=== PATIENT | female | born 2000 | race Caucasian/White ===

== ENCOUNTER 2020-02-17 09:53 | Emergency (ER) | payer BC, SELFPAY ==
--- NOTE | 2020-02-17 10:00 | ED.FEMALEGU ---
HPI - Female Genitourinary General Chief complaint: Urogenital-Female Stated complaint: burning with urination/lower back pain Time Seen by Provider: 02/17/20 10:05 Source: patient and RN notes reviewed Mode of arrival: ambulatory Limitations: no limitations History of Present Illness HPI Narrative: 19-year-old female presents with concern for possible urinary tract infection reports 4-day history of dysuria, urgency, frequency, bilateral low back pain, suprapubic pressure. Reports her menstrual. Recently finished. Reports she swam in a orta prior to symptoms. She denies fever, vomiting, nausea, malaise. Reports she took Azo for 2 days, however has not taken it for the past 2 days. MD elicited complaint: UTI Related Data Allergies Allergy/AdvReac Type Severity Reaction Status Date / Time No Known Allergies Allergy Verified 02/17/20 10:09 Review of Systems Review of Systems: Narrative: CONSTITUTIONAL: Denies malaise, chills, sweats, or fever. CARDIOVASCULAR: Denies chest pain, palpitations, or edema. RESPIRATORY: Denies cough or dyspnea. GASTROINTESTINAL: Denies abdominal pain, nausea, vomiting, diarrhea. Reports suprapubic pressure GENITOURINARY: Reports dysuria frequency, urgency, bilateral flank pain. Denies hematuria. SKIN: Denies rash or itching. MUSCULOSKELETAL: Denies myalgia. NEUROLOGIC: Denies headache. PSYCHIATRIC: Denies anxiety or depression. All systems reviewed & are unremarkable except as noted in HPI and below PMFSH Social History Social History Smoking status: Never smoker Second hand tobacco smoke exposure: No Alcohol intake: current Comments At time of signature, agree with nursing past medical, surgical, social and family history. There is no relevant family history pertinent to the presenting complaint Exam Narrative: Exam Narrative: GENERAL: Well-appearing, well-nourished, and in no acute distress. HEAD: Normocephalic. EYES: PERRLA, conjunctivae clear. NECK: Supple. No lymphadenopathy CHEST: Clear to auscultation. No respiratory distress. HEART: Regular rate and rhythm. No murmur heard. Normal peripheral pulses. ABDOMEN: Soft, nontender upon palpation, nondistended, normal active bowel sounds, no palpable or pulsatile masses, no guarding. Mild bilateral CVA tenderness SKIN: Warm, dry, no rash. NEURO: Alert and oriented x3. PSYCH: Normal mood and affect Course Course Emergency Course: Patient is aware of diagnosis, understands and agrees to treatment plan. Anticipatory guidance given. Patient agrees to follow-up as directed and is aware of reasons to seek care at the emergency department. Portions of this record may have been created with voice recognition software Vital Signs Vital signs: Reviewed. MDM - Female Genitourinary MDM Narrative Medical decision making narrative: Exam findings and UA show no acute concerns or changes; patient is non-toxic appearing and is in no distress. Patient is appropriate for outpatient treatment and follow-up. Differential Diagnosis Differential diagnosis: Likely urinary tract infection, cystitis and other (Pyelonephritis, nephrolithiasis, renal colic) Lab Data Attestation: I reviewed the patient's lab results. Critical Care Time Critical Care Time Critical Care Time: No Discharge Plan Discharge Clinical Impression: Symptoms of urinary tract infection Patient Disposition: Home, Self-Care Condition: Stable Instructions: Antibiotic Form, Urinary Tract Infection in Women (ED) Additional Instructions: We will send a urine culture off to the lab; if the culture identifies an organism that the prescribed antibiotic will not treat, you will receive a phone call from an urgent care staff member and an appropriate antibiotic will be prescribed. -Your symptoms should begin to improve within a day of starting antibiotics. But you should finish all the antibiotic pills you get. Otherwise your in
[2020-02-17 10:01] VITALS: BP 128/69; PULSE 71; RESP 14; TEMP 36.5; O2SAT 99
== END 2020-02-17 10:26 | disposition home or self-care (01) ==
PROVIDERS: Emergency Provider Nurse Practitioner; PCP Family Medicine
DX: R30.0 Dysuria (principal); R35.0 Frequency of micturition; R39.15 Urgency of urination; M54.5 Low back pain
CPT/HCPCS: 81003; 87077; 87086; 87088; 99213; G0463

== ENCOUNTER 2020-08-30 08:17 | Emergency (ER) | payer BC, OTHER, SELFPAY ==
[2020-08-30 08:23] VITALS: BP 128/55; PULSE 63; RESP 16; TEMP 36.4; O2SAT 98
--- NOTE | 2020-08-30 08:31 | ED.URI ---
HPI - URI/Sore Throat General Chief Complaint: Upper Respiratory Infection Stated Complaint: sore throat/nausea Time Seen by Provider: 08/30/20 08:31 Source: patient and RN notes reviewed Mode of arrival: ambulatory Limitations: no limitations History of Present Illness HPI Narrative: 20-year-old female who presents to [facility] with complaints of awakening at 3 AM with sore throat and nausea. Patient denies any fevers, no chills, no cough or any complaints of body aches. Patient states she has taken some NyQuil for her symptoms which did help some, she reports. Patient has had no vomiting or diarrhea, denies any abdominal pain, no loss of taste or smell or any shortness of breath. Patient states that her boyfriend did have a sore throat also but he is better, denies anyone in family as being ill. MD elicited complaint: sore throat Onset (ago): day(s) (1) Consistency: constant Severity: moderate Pain scale (0-10): 6 Description of mucous: clear Able to tolerate fluids by mouth: Yes Exacerbating factors: swallowing Relieving factors: other (cold medicine) Associated symptoms: rhinorrhea, sore throat and nausea Treatments prior to arrival: other (Nyquil) Related Data Home Medications Medication Instructions Recorded Confirmed No Home Medications 08/30/20 08/30/20 Allergies Allergy/AdvReac Type Severity Reaction Status Date / Time No Known Allergies Allergy Verified 08/30/20 08:30 Review of Systems Review of Systems: Narrative: CONSTITUTIONAL: Denies fever, chills, or sweats. EYES: Denies visual changes, redness, or discharge. ENT: positive rhinorrhea, congestion, sore throat, no otalgia. CARDIOVASCULAR: Denies chest pain, palpitations, or edema. RESPIRATORY: Denies cough or dyspnea. GASTROINTESTINAL: Denies abdominal pain,positive nausea, no vomiting, or diarrhea. GENITOURINARY: Denies dysuria or hematuria. SKIN: Denies rash or itching. MUSCULOSKELETAL: Denies back pain, joint pain, or myalgia. NEUROLOGIC: Denies headache, numbness, or weakness. PSYCHIATRIC: Positive history of anxiety or depression. All systems reviewed & are unremarkable except as noted in HPI and below PMFSH Past Medical History Medical History (Updated 08/30/20 @ 08:53 by Ebony Holland NP) Reactive depression Surgical History Surgical History (Updated 08/30/20 @ 09:25 by Ebony Holland NP) H/O hand surgery at age 3 right hand History of excision of pilonidal cyst Family History Family History Father Hypertension Mother Hypertension Grandparent Hypertension Acute myocardial infarction Family history of Alzheimer's disease Family history of malignant neoplasm of breast Family history of throat cancer Social History Social History (Updated 08/30/20 @ 08:52 by Ebony Holland NP) Smoking status: Never smoker Second hand tobacco smoke exposure: No Alcohol intake: current Substance use: never Gender identity (if verbalized by the patient): Female Comments At time of signature, agree with nursing past medical, surgical, social and family history. There is no relevant family history pertinent to the presenting complaint Exam Narrative: Exam Narrative: GENERAL: Well-appearing, well-nourished, and in no acute distress. HEAD: Normocephalic, atraumatic. EYES: PERRLA and EOMI. ENT: Nares red with clear rhinorrhea no epistaxis. Mucous membranes moist.TM's normal with good light reflex, throat red with no tonsil enlargement or exudates, post nasal drainage present in back of throat NECK: Supple.no lymphadenopathy CHEST: Clear to auscultation. No respiratory distress.SAO2 98% on room air. HEART: Regular rate and rhythm. No murmur heard. Normal peripheral pulses. ABDOMEN: Soft, nontender, nondistended, normal active bowel sounds, reports some nausea denies any vomiting or diarrhea. EXTREMITIES: Normal range of motion. No edema. SKIN: Warm, dry, no ra
== END 2020-08-30 09:00 | disposition home or self-care (01) ==
PROVIDERS: Emergency Provider Registered Nurse
DX: J06.9 Acute upper respiratory infection, unspecified (principal); J02.9 Acute pharyngitis, unspecified; Z20.822 Contact with and (suspected) exposure to COVID-19
CPT/HCPCS: 87081; 87804; 87880; 99213; G0463

== ENCOUNTER 2020-08-30 09:01 | Outpatient (NON) | payer BC, SELFPAY ==
[2020-08-30 19:42] LABS: SARS-CoV-2 RNA PCR Negative
== END 2020-08-30 09:02 ==
PROVIDERS: Visit Provider Registered Nurse
DX: J02.9 Acute pharyngitis, unspecified (principal); J06.9 Acute upper respiratory infection, unspecified; Z20.822 Contact with and (suspected) exposure to COVID-19
CPT/HCPCS: C9803; U0003

== ENCOUNTER 2020-10-11 09:33 | Emergency (ER) | payer OTHER, BC, SELFPAY ==
--- NOTE | 2020-10-11 09:35 | ED.FEMALEGU ---
HPI - Female Genitourinary General Chief complaint: Urogenital-Female Stated complaint: POS UTI Time Seen by Provider: 10/11/20 09:35 Source: patient and RN notes reviewed History of Present Illness HPI Narrative: Patient is a 20-year-old female who presents the urgent care with complaints of a possible UTI. Patient states that she does not have frequent UTIs however she has had them in the past after sexual intercourse. Patient is not currently on control but does state there is not a chance she could be . Patient states she is having suprapubic pressure, frequency, decreased urinary output, and dysuria. Patient denies of any fever, chills, nausea, vomiting, abdominal pain. Patient states that she has been taking Azo for her symptoms which started 2 days ago. Patient states that her last dose of Azo was last night. No other acute complaints. No acute distress noted. Patient aware of the plan of care. Some parts of this dictation were generated by voice recognition software and may contain typographical and/or grammatical inaccuracies. Related Data Allergies Allergy/AdvReac Type Severity Reaction Status Date / Time No Known Allergies Allergy Verified 08/30/20 08:30 Review of Systems Review of Systems: Narrative: CONSTITUTIONAL: Denies fever, chills, or sweats. EYES: Denies visual changes, redness, or discharge. ENT: Denies rhinorrhea, congestion, sore throat, or otalgia. CARDIOVASCULAR: Denies chest pain, palpitations, or edema. RESPIRATORY: Denies cough or dyspnea. GASTROINTESTINAL: Denies abdominal pain, nausea, vomiting, or diarrhea. GENITOURINARY: Reports of urinary frequency, decreased urinary output, dysuria, suprapubic pressure SKIN: Denies rash or itching. MUSCULOSKELETAL: Denies back pain, joint pain, or myalgia. NEUROLOGIC: Denies headache, numbness, or weakness. All other systems reviewed are negative, except as documented in HPI. [facility] Past Medical History Medical History (Updated 10/11/20 @ 09:49 by JENNIE Yip) Reactive depression Surgical History Surgical History (Updated 08/30/20 @ 09:25 by Ebony Holland NP) H/O hand surgery at age 3 right hand History of excision of pilonidal cyst Family History Family History Father Hypertension Mother Hypertension Grandparent Hypertension Acute myocardial infarction Family history of Alzheimer's disease Family history of malignant neoplasm of breast Family history of throat cancer Social History Social History (Updated 08/30/20 @ 08:52 by Ebony Holland NP) Smoking status: Never smoker Second hand tobacco smoke exposure: No Alcohol intake: current Substance use: never Gender identity (if verbalized by the patient): Female Comments At the time of my signature, I reviewed and agree with the nursing past medical, surgical, social, and family history. There is no relevant family history pertinent to the patient complaint. Exam Narrative: Exam Narrative: GENERAL: This is a well-nourished, well-developed patient, in no apparent distress. HEAD: normocephalic, atraumatic. EYES: PERRL. Sclera clear/white. Vision is grossly intact. EARS: External ears normal NOSE: External nose normal with no obvious nasal discharge, nares without redness, no rhinorrhea. THROAT: Mucous membranes moist NECK: Neck supple GASTROINTESTINAL: Abdomen soft, mild suprapubic tenderness, nondistended. SKIN: warm, intact with no suspicious lesions or rash, good texture and turgor. NEURO: awake, alert, and oriented to person, place and time. There were no obvious focal neurologic abnormalities. EXTREMITIES: No clubbing, cyanosis, or edema. BACK: Left-sided CVA tenderness Course Vital Signs Vital signs: Vital Signs Temperature 99.5 F 10/11/20 09:37 Pulse Rate 122 H 10/11/20 09:37 Respiratory Rate 16 10/11/20 09:37 Blood Pressure 134/93 H 10/11/20 09:37 P
[2020-10-11 09:37] VITALS: BP 134/93; PULSE 122; RESP 16; TEMP 37.5; O2SAT 99
== END 2020-10-11 09:56 | disposition home or self-care (01) ==
PROVIDERS: Emergency Provider Nurse Practitioner Family
DX: N39.0 Urinary tract infection, site not specified (principal)
CPT/HCPCS: 81003; 87086; 87088; 99213; G0463

== ENCOUNTER 2021-01-07 09:14 | Emergency (ER) | payer BC, SELFPAY ==
[2021-01-07 09:40] VITALS: BP 113/72; PULSE 72; RESP 16; TEMP 37; O2SAT 98
--- NOTE | 2021-01-07 10:18 | ED.FEMALEGU ---
HPI - Female Genitourinary General Chief complaint: Urogenital-Female Stated complaint: UTI Time Seen by Provider: 01/07/21 10:18 Source: patient Mode of arrival: ambulatory Limitations: no limitations History of Present Illness HPI Narrative: Shilpa Barclay is a 20 yo female who comes to [facility] with complaints of 2 days of burning dysuria and difficulty urinating she tried Azo but has still had a lot of difficulty with urinating Related Data Allergies Allergy/AdvReac Type Severity Reaction Status Date / Time No Known Allergies Allergy Verified 08/30/20 08:30 Review of Systems Review of Systems: Narrative: CONSTITUTIONAL: Denies fever, chills, sweats. EYES: Denies visual changes, redness, discharge. ENT: Denies rhinorrhea, congestion, sore throat, otalgia. CARDIOVASCULAR: Denies chest pain, palpitations, edema. RESPIRATORY: Denies dyspnea, wheezing, cough GASTROINTESTINAL: Denies abdominal pain, nausea, vomiting, diarrhea. GENITOURINARY: Has dysuria, hematuria, no abnormal discharge SKIN: Denies rash or itching. NEUROLOGIC: Denies numbness, or focal weakness. PSYCHIATRIC: Denies anxiety or depression. PMFSH Past Medical History Medical History Reactive depression Surgical History Surgical History H/O hand surgery at age 3 right hand History of excision of pilonidal cyst Family History Family History Father Hypertension Mother Hypertension Grandparent Hypertension Acute myocardial infarction Family history of Alzheimer's disease Family history of malignant neoplasm of breast Family history of throat cancer Other High cholesterol Social History Social History Smoking status: Never smoker Second hand tobacco smoke exposure: No Alcohol intake: current Substance use: never Gender identity (if verbalized by the patient): Female Comments At time of signature, I agree with nursing past medical, surgical, social and family history. There is no relevant family history pertinent to the presenting complaint. Exam Narrative: Exam Narrative: GENERAL: This is a well-nourished, well-developed patient, in mild distress. HEAD: normocephalic, atraumatic. EYES: Sclera clear/white. Vision is grossly intact. EARS: External ears normal. Hearing grossly intact. NOSE: External nose normal without nasal discharge, nares without redness, no rhinorrhea. THROAT: Mucous membranes moist, NECK: Neck supple, non-tender CARDIOVASCULAR: Regular rate and rhythm without murmurs, gallops, or rubs. RESPIRATORY: Clear to auscultation. Breath sounds equal bilaterally. No wheezes, rales, or rhonchi. GASTROINTESTINAL: Abdomen soft, non-tender, SKIN: warm, intact with no suspicious lesions or rash, good texture and turgor. NEURO: awake, alert, and oriented to person, place and time. There were no obvious focal neurologic abnormalities. Steady gait EXTREMITIES: Normal range of motion. BACK: Nontender without deformity Course Course Emergency Course: Patient comes to [facility] for treatment of dysuria and difficulty urinating x2 days Shows 2+ bili 1+ ketones positive nitrate 3+ leuks no blood Start on Keflex 500 mg 1 twice daily x5 days Instructed to hydrate well with water Vital Signs Vital signs: Vital Signs Temperature 98.6 F 01/07/21 09:40 Pulse Rate 72 01/07/21 09:40 Respiratory Rate 16 01/07/21 09:40 Blood Pressure 113/72 01/07/21 09:40 Pulse Oximetry 98 01/07/21 09:40 Temperature 98.6 F 01/07/21 09:40 Pulse Rate 72 01/07/21 09:40 Respiratory Rate 16 01/07/21 09:40 Blood Pressure 113/72 01/07/21 09:40 Pulse Oximetry 98 01/07/21 09:40 MDM - Female Genitourinary Differential Diagnosis Differential diagnosis: Likely urinary tract infection, cyst
== END 2021-01-07 10:36 | disposition home or self-care (01) ==
PROVIDERS: Emergency Provider Nurse Practitioner
DX: N30.00 Acute cystitis without hematuria (principal)
CPT/HCPCS: 81003; 87086; 99213; G0463

== ENCOUNTER 2021-03-13 15:56 | Emergency (ER) | payer BC, SELFPAY ==
[2021-03-13 16:08] VITALS: BP 129/73; PULSE 70; RESP 20; TEMP 36.8; O2SAT 99
--- NOTE | 2021-03-13 17:05 | ED.FEMALEGU ---
HPI - Female Genitourinary General Chief complaint: Urogenital-Female Stated complaint: poss uti Time Seen by Provider: 03/13/21 17:05 Source: patient and RN notes reviewed Mode of arrival: ambulatory Limitations: no limitations History of Present Illness HPI Narrative: 20 year old female who presents to express care with complaints of burning with urination and suprapubic pressure with urinary frequency since yesterday. Patient denies any known fevers, chills or sweats, denies any vaginal discharge or concern for STD exposure. Patient has taken AZO and Aleve for her symptoms. Patient states was treated for UTI in December also. MD elicited complaint: dysuria and UTI Pertinent past history: pyelonephritis Onset (ago): day(s) (day 2 of symptoms) Location of symptoms: suprapubic and urethra Severity: moderate Severity scale (1-10): 6 Quality of pain: burning and aching Consistency: progressively worsening Vaginal discharge: none Vaginal bleeding: none Urinary symptoms: Dysuria, Urgency and Frequency Relieving factors: urination Treatment prior to arrival: OTC urinary analgesics and NSAIDs Related Data Allergies Allergy/AdvReac Type Severity Reaction Status Date / Time No Known Allergies Allergy Verified 03/13/21 16:37 Review of Systems Review of Systems: Narrative: CONSTITUTIONAL: Denies fever, chills, or sweats. EYES: Denies visual changes, redness, or discharge. ENT: Denies rhinorrhea, congestion, sore throat, or otalgia. CARDIOVASCULAR: Denies chest pain, palpitations, or edema. RESPIRATORY: Denies cough or dyspnea. GASTROINTESTINAL:Positive suprapubic abdominal pain,no nausea, vomiting, or diarrhea. GENITOURINARY:Positive dysuria or hematuria. SKIN: Denies rash or itching. MUSCULOSKELETAL: Denies back pain, joint pain, or myalgia. NEUROLOGIC: Denies headache, numbness, or weakness. PSYCHIATRIC: Denies anxiety or depression. All systems reviewed & are unremarkable except as noted in HPI and below [facility] Past Medical History Medical History (Updated 03/17/21 @ 10:02 by Ebony Holland NP) Reactive depression Recurrent UTI Surgical History Surgical History H/O hand surgery at age 3 right hand History of excision of pilonidal cyst Family History Family History Father Hypertension Alcoholism Depression Heart problem Mother Hypertension Alcoholism Depression Grandparent Hypertension Acute myocardial infarction Family history of Alzheimer's disease Family history of malignant neoplasm of breast Family history of throat cancer Breast cancer Diabetes mellitus Other High cholesterol Social History Social History Smoking status: Never smoker Second hand tobacco smoke exposure: No Alcohol intake: current Alcohol use details: monthly Substance use: never Gender identity (if verbalized by the patient): Female Exam Narrative: Exam Narrative: GENERAL: Well-appearing, well-nourished, and in no acute distress. HEAD: Normocephalic, atraumatic. EYES: PERRLA and EOMI. ENT: Nares clear, no rhinorrhea or epistaxis. Mucous membranes moist. NECK: Supple.no lymphadenopathy CHEST: Clear to auscultation. No respiratory distress.SAO2 99% on room air HEART: Regular rate and rhythm. No murmur heard. Normal peripheral pulses. ABDOMEN: Soft,tender over suprapubic area, No McBurney point tenderness, nondistended, normal active bowel sounds.Burning with urination with frequency EXTREMITIES: Normal range of motion. No edema. SKIN: Warm, dry, no rash. NEURO: No focal deficits. Alert and oriented x3. Course Vital Signs Vital signs: Vital Signs Temperature 36.8 C 03/13/21 16:08 Pulse Rate 70 03/13/21 16:08 Respiratory Rate 20 03/13/21 16:08 Blood Pressure 129/73 03/13/21 16:08 Pulse Oximetry 99 03/13/21 16:08
== END 2021-03-13 17:31 | disposition home or self-care (01) ==
PROVIDERS: Emergency Provider Registered Nurse
DX: N39.0 Urinary tract infection, site not specified (principal)
CPT/HCPCS: 81003; 87077; 87086; 87088; 87186; 99213; G0463

== ENCOUNTER 2022-01-23 17:04 | Emergency (ER) | payer BC, SELFPAY ==
[2022-01-23 17:11] VITALS: BP 136/90; PULSE 72; RESP 16; TEMP 36.2; O2SAT 99
--- NOTE | 2022-01-23 17:12 | ED.FEMALEGU ---
HPI - Female Genitourinary General Chief complaint: Urogenital-Female Stated complaint: uti symptoms Time Seen by Provider: 01/23/22 17:12 Source: patient and RN notes reviewed Mode of arrival: ambulatory Limitations: no limitations History of Present Illness HPI Narrative: 21-year-old female presented for complaint of burning with urination, suprapubic pressure and urinary hesitancy for 2 days. She denies associated nausea, vomiting, abdominal pain, flank pain, hematuria, fevers or chills. She has been taking Azo for symptoms. Related Data Allergies Allergy/AdvReac Type Severity Reaction Status Date / Time No Known Allergies Allergy Verified 05/12/21 09:30 Review of Systems Review of Systems: CONSTITUTIONAL: Denies body aches, fever, chills, or sweats. CARDIOVASCULAR: Denies chest pain, palpitations, or edema. RESPIRATORY: Denies cough or dyspnea. GASTROINTESTINAL: Denies abdominal pain, nausea, vomiting, or diarrhea. GENITOURINARY: Reports dysuria, frequency, urgency, hematuria, flank pain SKIN: Denies rash, itching, or wounds. MUSCULOSKELETAL: Denies back pain or myalgia. [facility] Past Medical History Medical History Reactive depression Recurrent UTI Surgical History Surgical History H/O hand surgery at age 3 right hand History of excision of pilonidal cyst Family History Family History Father Hypertension Alcoholism Depression Heart problem Mother Hypertension Alcoholism Depression Grandparent Hypertension Acute myocardial infarction Family history of Alzheimer's disease Family history of malignant neoplasm of breast Family history of throat cancer Breast cancer Diabetes mellitus Other High cholesterol Social History Social History Smoking status: Never smoker Second hand tobacco smoke exposure: No Alcohol intake: current Alcohol use details: monthly Substance use: never Gender identity (if verbalized by the patient): Female Comments At time of signature, I have reviewed and agree with nursing past medical, surgical, social and family history unless otherwise noted. Please see nursing chart for further information. There is no relevant family history pertinent to the presenting complaint Exam Narrative: GENERAL: Well-appearing HEAD: Normocephalic EYES: EOMI. ENT: Mucous membranes pink and moist. NECK: Normal AROM. Supple. CHEST: No respiratory distress. Clear to auscultation. HEART: Regular rate and rhythm. ABDOMEN: Soft, nontender, nondistended, normal active bowel sounds. No CVA tenderness MUSCULOSKELETAL: No bony tenderness. SKIN: Warm, dry, no rash. Course Course Emergency Course: Patient is aware of diagnosis, understands and agrees to treatment plan. Anticipatory guidance given. Patient agrees to follow-up as directed and is aware of reasons to seek care at the emergency department. Portions of this record may have been created with voice recognition software Level of Care: Express Care Visit Vital Signs Vital signs: Reviewed MDM - Female Genitourinary MDM Narrative Medical decision making narrative: Urine reviewed with pt. She is advised on the abx and urine will be sent for culture. V/U. Differential Diagnosis Differential diagnosis: Likely urinary tract infection and cystitis Discharge Plan Discharge Clinical Impression: Urinary tract infection Qualifiers: Urinary tract infection type: site unspecified Hematuria presence: without hematuria Qualified Code(s): N39.0 - Urinary tract infection, site not specified Patient Disposition: Home, Self-Care Condition: Stable Instructions: Antibiotic Form, Urinary Tract Infection in Women (ED) Additional Instructions: Your urine shows infection t
== END 2022-01-23 17:29 | disposition home or self-care (01) ==
PROVIDERS: Emergency Provider Nurse Practitioner Family
DX: N39.0 Urinary tract infection, site not specified (principal)
CPT/HCPCS: 81003; 87086; 99213; G0463

== ENCOUNTER 2022-07-04 17:14 | Emergency (ER) | payer BC, SELFPAY ==
[2022-07-04 17:21] VITALS: BP 133/91; PULSE 75; RESP 16; TEMP 37.1; O2SAT 100
--- NOTE | 2022-07-04 17:29 | ED.FEMALEGU ---
HPI - Female Genitourinary General Chief complaint: Urogenital-Female Stated complaint: uti symptoms Time Seen by Provider: 07/04/22 17:29 Source: patient Mode of arrival: ambulatory Limitations: no limitations History of Present Illness HPI Narrative: 22-year-old female presents with complaint of urinary frequency, dysuria since yesterday. Reports history of frequent urinary tract infections related to intercourse. Has not seen her primary care or learning strategist regarding this. Denies nausea vomiting diarrhea. No fever chills. All systems reviewed and negative except as noted above. Related Data Allergies Allergy/AdvReac Type Severity Reaction Status Date / Time No Known Allergies Allergy Verified 07/04/22 17:21 Review of Systems Review of Systems: CONSTITUTIONAL: Denies fever, chills, or sweats. EYES: Denies visual changes, redness, or discharge. ENT: Denies rhinorrhea, congestion, sore throat, or otalgia. CARDIOVASCULAR: Denies chest pain, palpitations, or edema. RESPIRATORY: Denies cough or dyspnea. GASTROINTESTINAL: Denies abdominal pain, nausea, vomiting, or diarrhea. GENITOURINARY: Reports dysuria, frequency SKIN: Denies rash or itching. MUSCULOSKELETAL: Denies back pain, joint pain, or myalgia. NEUROLOGIC: Denies headache, numbness, or weakness. PSYCHIATRIC: Denies anxiety or depression. All other systems reviewed are negative, except as documented in HPI. [facility] Past Medical History Medical History Reactive depression Recurrent UTI Surgical History Surgical History H/O hand surgery at age 3 right hand History of excision of pilonidal cyst Family History Family History Father Hypertension Alcoholism Depression Heart problem Mother Hypertension Alcoholism Depression Grandparent Hypertension Acute myocardial infarction Family history of Alzheimer's disease Family history of malignant neoplasm of breast Family history of throat cancer Breast cancer Diabetes mellitus Other High cholesterol Social History Social History Smoking status: Never smoker Second hand tobacco smoke exposure: No Alcohol intake: current Alcohol use details: monthly Substance use: never Gender identity (if verbalized by the patient): Female Comments At time of signature, agree with nursing past medical, surgical, social and family history. There is no relevant family history pertinent to the presenting complaint. Exam Narrative: GENERAL: This is a well-nourished, well-developed patient, in no apparent distress. HEAD: normocephalic, atraumatic. EYES: PERRL. Sclera clear/white. Vision is grossly intact. EARS: External ears normal NOSE: External nose normal Delete NECK: Neck supple, non-tender without lymphadenopathy, masses or thyromegaly. CARDIOVASCULAR: Regular rate and rhythm without murmurs, gallops, or rubs. RESPIRATORY: Clear to auscultation. Breath sounds equal bilaterally. No wheezes, rales, or rhonchi. Delete SKIN: warm, Dry, intact with no suspicious lesions or rash, good texture and turgor. NEURO: awake, alert, and oriented to person, place and time. There were no obvious focal neurologic abnormalities. EXTREMITIES: No joint tenderness, effusion, or edema noted. Delete Course Course Level of Care: Express Care Visit Vital Signs Vital signs: Vital Signs Temperature 37.1 C 07/04/22 17:21 Pulse Rate 75 07/04/22 17:21 Respiratory Rate 16 07/04/22 17:21 Blood Pressure 133/91 H 07/04/22 17:21 Pulse Oximetry 100 07/04/22 17:21 Temperature 37.1 C 07/04/22 17:21 Pulse Rate 75 07/04/22 17:21 Respiratory Rate 16 07/04/22 17:21 Blood Pressure 133/91 H 07/04/22 17:21 Pulse Oximetry 100 07/04/22 17:21 Reviewed MDM - Female Genitou
== END 2022-07-04 17:38 | disposition home or self-care (01) ==
PROVIDERS: Emergency Provider Nurse Practitioner Family; PCP Nurse Practitioner
DX: N39.0 Urinary tract infection, site not specified (principal)
CPT/HCPCS: 81003; 87086; 87088; 99213; G0463

== ENCOUNTER 2022-08-22 17:33 | Emergency (ER) | payer BC, SELFPAY ==
[2022-08-22 18:04] VITALS: BP 113/85; PULSE 67; RESP 16; TEMP 36.9; O2SAT 100
--- NOTE | 2022-08-22 18:51 | ED.FEMALEGU ---
HPI - Female Genitourinary General Chief complaint: Urogenital-Female Stated complaint: UTI Time Seen by Provider: 08/22/22 18:52 Source: patient and RN notes reviewed Mode of arrival: ambulatory Limitations: no limitations History of Present Illness HPI Narrative: 22 y/o female presenting for complaint burning with urination, frequency and urgency over the last 5 days. She denies associated abdominal pain, flank pain, nausea, vomiting, fevers or chills. She denies vaginal discharge or concern for STD.Taking azo for 3 days. Related Data Home Medications Medication Instructions Recorded Confirmed No Home Medications 08/22/22 08/22/22 Allergies Allergy/AdvReac Type Severity Reaction Status Date / Time No Known Allergies Allergy Verified 08/22/22 18:31 Review of Systems Review of Systems: CONSTITUTIONAL: Denies body aches, fever, chills, or sweats. CARDIOVASCULAR: Denies chest pain, palpitations, or edema. RESPIRATORY: Denies cough or dyspnea. GASTROINTESTINAL: Denies abdominal pain, nausea, vomiting, or diarrhea. GENITOURINARY: Reports dysuria, frequency, urgency,denies hematuria, flank pain SKIN: Denies rash, itching, or wounds. MUSCULOSKELETAL: Denies back pain or myalgia. [facility] Past Medical History Medical History Reactive depression Recurrent UTI Surgical History Surgical History H/O hand surgery at age 3 right hand History of excision of pilonidal cyst Family History Family History Father Hypertension Alcoholism Depression Heart problem Mother Hypertension Alcoholism Depression Grandparent Hypertension Acute myocardial infarction Family history of Alzheimer's disease Family history of malignant neoplasm of breast Family history of throat cancer Breast cancer Diabetes mellitus Other High cholesterol Social History Social History Smoking status: Never smoker Second hand tobacco smoke exposure: No Alcohol intake: current Alcohol use details: monthly Substance use: never Gender identity (if verbalized by the patient): Female Comments At time of signature, I have reviewed and agree with nursing past medical, surgical, social and family history unless otherwise noted. Please see nursing chart for further information. There is no relevant family history pertinent to the presenting complaint Exam Narrative: GENERAL: Well-appearing and in no acute distress. HEAD: Normocephalic EYES: EOMI. . ENT: Mucous membranes pink and moist. NECK: Normal AROM. Supple. CHEST: No respiratory distress. Clear to auscultation. HEART: Regular rate and rhythm. ABDOMEN: Soft, nontender, nondistended, normal active bowel sounds. No CVA tenderness SKIN: Warm, dry, no rash. NEURO: No focal deficits. Alert and oriented x3. Gait steady. PSYCH: Normal affect. Course Course Emergency Course: Patient is aware of diagnosis, understands and agrees to treatment plan. Anticipatory guidance given. Patient agrees to follow-up as directed and is aware of reasons to seek care at the emergency department. Portions of this record may have been created with voice recognition software Level of Care: Express Care Visit Vital Signs Vital signs: Vital Signs Temperature 98.5 F 08/22/22 18:04 Pulse Rate 67 08/22/22 18:04 Respiratory Rate 16 08/22/22 18:04 Blood Pressure 113/85 08/22/22 18:04 Pulse Oximetry 100 08/22/22 18:04 Temperature 98.5 F 08/22/22 18:04 Pulse Rate 67 08/22/22 18:04 Respiratory Rate 16 08/22/22 18:04 Blood Pressure 113/85 08/22/22 18:04 Pulse Oximetry 100 08/22/22 18:04 Reviewed MDM - Female Genitourinary MDM Narrative Medical decision making narrative: Reviewed previous urine cultures
== END 2022-08-22 19:10 | disposition home or self-care (01) ==
PROVIDERS: Emergency Provider Nurse Practitioner Family; PCP Nurse Practitioner
DX: N39.0 Urinary tract infection, site not specified (principal)
CPT/HCPCS: 81003; 87077; 87086; 87186; 99213; G0463

== ENCOUNTER 2022-10-17 12:18 | Emergency (ER) | payer BC, SELFPAY ==
--- NOTE | 2022-10-17 12:19 | ED.URI ---
HPI - URI/Sore Throat General Chief Complaint: Upper Respiratory Infection Stated Complaint: EARACHE/SINUS Time Seen by Provider: 10/17/22 12:20 Source: patient and RN notes reviewed History of Present Illness HPI Narrative: Patient is a 22-year-old female who presents to the Urgent Care with complaints of bilateral ear ache, worse on the right, sinus pressure, sore throat and mild cough. Patient states that started on Saturday and she has been taking NyQuil and Tylenol. Patient denies any ill exposures. Denies any known fevers, nausea or vomiting. No other acute complaints. No acute distress noted. Patient aware of plan of care. Some parts of this dictation were generated by voice recognition software and may contain typographical and/or grammatical inaccuracies. Related Data Allergies Allergy/AdvReac Type Severity Reaction Status Date / Time No Known Allergies Allergy Verified 08/22/22 18:31 Review of Systems Review of Systems: CONSTITUTIONAL: Denies fever, chills, or sweats. EYES: Denies visual changes, redness, or discharge. ENT: Reports bilateral otalgia postnasal drainage, congestion and sore throat CARDIOVASCULAR: Denies chest pain, palpitations, or edema. RESPIRATORY: Reports of cough without dyspnea GASTROINTESTINAL: Denies abdominal pain, nausea, vomiting, or diarrhea. GENITOURINARY: Denies dysuria or hematuria. SKIN: Denies rash or itching. MUSCULOSKELETAL: Denies back pain, joint pain, or myalgia. NEUROLOGIC: Reports headaches All other systems reviewed are negative, except as documented in HPI. [facility] Past Medical History Medical History Reactive depression Recurrent UTI Surgical History Surgical History H/O hand surgery at age 3 right hand History of excision of pilonidal cyst Family History Family History Father Hypertension Alcoholism Depression Heart problem Mother Hypertension Alcoholism Depression Grandparent Hypertension Acute myocardial infarction Family history of Alzheimer's disease Family history of malignant neoplasm of breast Family history of throat cancer Breast cancer Diabetes mellitus Other High cholesterol Social History Social History Smoking status: Never smoker Second hand tobacco smoke exposure: No Alcohol intake: current Alcohol use details: monthly Substance use: never Living arrangements: with family Occupation/Education: student Gender identity (if verbalized by the patient): Female Comments At the time of my signature, I reviewed and agree with the nursing past medical, surgical, social, and family history. There is no relevant family history pertinent to the patient complaint. Exam Narrative: GENERAL: This is a well-nourished, well-developed patient, in no apparent distress. HEAD: normocephalic, atraumatic. Frontal sinus tenderness on palpation EYES: PERRL. Sclera clear/white. Vision is grossly intact. EARS: External ears normal, auditory canals clear and without drainage, TMs normal without perforation. Hearing grossly intact. NOSE: External nose normal with no obvious nasal discharge. Bilateral erythema nares with clear yellow rhinorrhea THROAT: Mucous membranes moist, posterior pharynx clear. Moderate postnasal drainage NECK: Neck supple, non-tender without lymphadenopathy CARDIOVASCULAR: Regular rate and rhythm without murmurs, gallops, or rubs. RESPIRATORY: Clear to auscultation. Breath sounds equal bilaterally. No wheezes, rales, or rhonchi. SKIN: warm, intact with no suspicious lesions or rash, good texture and turgor. NEURO: awake, alert, and oriented to person, place and time. There were no obvious focal neurologic abnormalities. EXTREMITIES: No clubbing, cyanosis, or edema. Course Cours
[2022-10-17 12:24] VITALS: BP 108/80; PULSE 92; RESP 20; TEMP 36.3; O2SAT 100
== END 2022-10-17 12:45 | disposition home or self-care (01) ==
PROVIDERS: Emergency Provider Nurse Practitioner Family; PCP Nurse Practitioner
DX: J32.9 Chronic sinusitis, unspecified (principal)
CPT/HCPCS: 87081; 87880; 99213; G0463

== ENCOUNTER 2023-06-21 19:52 | Emergency (ER) | payer BC, SELFPAY ==
[2023-06-21 19:54] VITALS: BP 132/87; PULSE 81; RESP 16; TEMP 36.7; O2SAT 100
--- NOTE | 2023-06-21 20:50 | ED.GENADULT ---
[facility] - General Adult General Chief complaint: Abdominal Pain Stated complaint: Constipation Time Seen by Provider: 06/21/23 20:31 Source: patient Mode of arrival: ambulatory Limitations: no limitations History of Present Illness HPI narrative: This is a 23-year-old female who presents to the ED with chief complaint of constipation for the past 2 months. Reports that she has not had a bowel movement in 2 days. She has been taking Dulcolax irregularly over the past couple of days with no relief. She also tried a saline enema today with no relief. Denies obstipation. States she has intermittent lower abdominal pains but no pain now. Denies fevers, chills, nausea, vomiting. States she has not yet gone to her PCP for this problem. Related Data Allergies Allergy/AdvReac Type Severity Reaction Status Date / Time No Known Allergies Allergy Verified 06/21/23 19:56 Review of Systems Review of Systems: All systems as dictated in [facility] Past Medical History Medical History (Updated 06/21/23 @ 21:26 by Darion Castaneda PA-C) Pelvic floor dysfunction Reactive depression Recurrent UTI Surgical History Surgical History H/O hand surgery at age 3 right hand History of excision of pilonidal cyst Family History Family History Father Hypertension Alcoholism Depression Heart problem Mother Hypertension Alcoholism Depression Grandparent Hypertension Acute myocardial infarction Family history of Alzheimer's disease Family history of malignant neoplasm of breast Family history of throat cancer Breast cancer Diabetes mellitus Other High cholesterol Social History Social History (Updated 03/12/23 @ 14:45 by Erika Kinsey MA) Smoking status: Never smoker Second hand tobacco smoke exposure: No Alcohol intake: current Alcohol use details: monthly Substance use: never Lack of Transportation: No Lack of Food: Never True Current Housing: I Have Housing Concerned About Future Housing: No Difficulty Paying Gas/Electric Bills: No Difficulty Paying for Meds: No Currently Unemployed: No Education: Bachelor's Degree Difficulty w/ Childcare or Family Care: No Living arrangements: with roommate(s) Occupation/Education: occupation Additional occupation/education comments: [employer] Gender identity (if verbalized by the patient): Female Sexual Orientation (if Verbalized by the Patient): Straight or Heterosexual Exam Narrative: GENERAL: Well-appearing, well-nourished, and in no acute distress. HEAD: Normocephalic, atraumatic. EYES: PERRLA and EOMI. ENT: Nares clear, no rhinorrhea or epistaxis. Mucous membranes moist. Oropharynx without tonsillar hypertrophy exudate or other lesions. NECK: Supple. No adenopathy or masses. CHEST: No respiratory distress. Clear to auscultation. No wheezes rales or rhonchi HEART: Regular rate and rhythm. No murmur heard. Normal peripheral pulses. ABDOMEN: Soft, nontender, nondistended, normal active bowel sounds. No flank tenderness bilaterally. MSK: Normal range of motion. No edema. SKIN: Warm, dry, no rash. NEURO: Alert and oriented x3. No focal deficits. PSYCH: Normal mood and affect. Course Vital Signs Vital signs: Vital Signs Temperature 98.1 F 06/21/23 19:54 Pulse Rate 81 06/21/23 19:54 Respiratory Rate 16 06/21/23 19:54 Blood Pressure 132/87 06/21/23 19:54 Pulse Oximetry 100 06/21/23 19:54 Oxygen Delivery Room Air 06/21/23 19:54 Temperature 98.1 F 06/21/23 19:54 Pulse Rate 81 06/21/23 19:54 Respiratory Rate 16 06/21/23 19:54 Blood Pressure 132/87 06/21/23 19:54 Pulse Oximetry 100 06/21/23 19:54 Oxygen Delivery Room Air 06/21/23 19:54 Medical Decision Making [facility] Narrative Medical decision making narrative: This is a 23-year
== END 2023-06-21 21:58 | disposition left against medical advice (07) ==
PROVIDERS: Emergency Provider Physician Assistant; PCP Family Medicine
DX: K59.00 Constipation, unspecified (principal)
CPT/HCPCS: 81025; 99283

== ENCOUNTER → 2023-06-24 13:19 | Outpatient (CLI) | payer BC, SELFPAY ==
--- NOTE | ~2023-06-24 | XR_ITS ---
EXAMINATION: XR abdomen obstructive series DATE: 06/24/2023 13:32 INDICATION: Lower abdomen pain with constipation TECHNIQUE: Supine and upright views of the abdomen. FINDINGS: No prior studies for comparison. The visualized lung parenchyma is normal.. There is a bowel gas pattern. Gas and stool are seen throu ghout the colon to the level of the rectum. There is no free air. There is mild levoscoliosis of the lumbar spine. IMPRESSION: 1. No acute abdominal abnormality. Reviewed, dictated and finalized at location A.
== END ==
PROVIDERS: PCP Nurse Practitioner Family; Visit Provider Nurse Practitioner Family
DX: K59.00 Constipation, unspecified (principal)
CPT/HCPCS: 74019

== ENCOUNTER 2023-07-03 15:52 | Outpatient (CLI) | payer BC, SELFPAY ==
[2023-07-03 16:31] LABS: Hematocrit 38.6 % (37.0-47.0); Hemoglobin 12.9 g/dL (12.0-15.0); Mean Corpuscular HGB Conc 33.4 g/dl (32-36); Mean Corpuscular Hemoglobin 29.2 pg (26-34); Mean Corpuscular Volume 87.3 fl (80-100); Mean Platelet Volume 11.4 fl (7.4-10.4); Platelet Count Result 305 k/mm3 (150-375); Red Blood Count 4.42 M/mm3 (4.2-5.4)
[2023-07-03 16:45] LABS: Alanine Aminotransferase 18 U/L (6-35); Albumin Level 4.5 g/dL (3.5-5.1); Alkaline Phosphatase 42 U/L (38-126); Anion Gap 7 mmol/L (8-16); Aspartate Amino Transferase 26 U/L (14-36); Blood Urea Nitrogen 11 mg/dL (7-17); CRP < 0.5 mg/dL (<1.0); Calcium 8.8 mg/dL (8.4-10.2); Carbon Dioxide 26 mmol/L (22-30); Chloride 103 mmol/L (98-107); Estimated Glomerular Filt Rate > 60; Glucose 112 mg/dL (65-110); Potassium 3.5 mmol/L (3.4-5.0); Sodium 136 mmol/L (137-145)
[2023-07-03 17:14] LABS: Erythrocyte Sedimentation Rate 7 mm/hr (0-20)
== END 2023-07-03 15:53 | disposition home or self-care (01) ==
LOC: ANHLAB 15:53
PROVIDERS: PCP Nurse Practitioner Family; Visit Provider Nurse Practitioner
DX: K59.09 Other constipation (principal)
CPT/HCPCS: 36415; 80053; 84443; 85027; 85652; 86140

== ENCOUNTER 2023-08-09 10:20 | Outpatient (CLI) | payer BC, SELFPAY | END 2023-08-09 10:21 | disposition home or self-care (01) | LOC: ANHGOSHLAB 10:22 | PROVIDERS: PCP Nurse Practitioner Family; Visit Provider Nurse Practitioner Family | DX: N92.6 Irregular menstruation, unspecified (principal) | CPT/HCPCS: 36415; 84702 ==

== ENCOUNTER 2023-08-23 10:02 | Outpatient (CLI) | payer BC, SELFPAY ==
[2023-08-23 13:24] LABS: Basophils Percent Auto 0.4 % (0.2-1.2); Eosinophils Absolute Auto 0.2 K/mm3 (0-0.3); Eosinophils Percent Auto 2.2 % (0-4.4); Hemoglobin 13.3 g/dL (12.0-15.0); Immature Granulocyte Absolute 0.03 K/mm3 (0.00-0.031); Immature Granulocyte Percent A 0.4 % (0-0.5); Lymphocytes Absolute Auto 1.49 K/mm3 (0.9-3.2); Lymphocytes Percent Auto 18.3 % (18.3-44.2); Mean Corpuscular HGB Conc 33.3 g/dl (32-36); Mean Corpuscular Hemoglobin 28.8 pg (26-34); Mean Corpuscular Volume 86.6 fl (80-100); Monocytes Absolute Auto 0.8 K/mm3 (0.1-0.6); Monocytes Percent Auto 9.7 % (2.6-8.5); Neutrophils Absolute Auto 5.6 K/mm3 (1.3-6.7); Platelet Count Result 273 k/mm3 (150-375); Red Blood Count 4.62 M/mm3 (4.2-5.4); Red Cell Distribution Width 12.7 % (11.5-14.5); White Blood Count 8.1 K/mm3 (4.5-10.0)
[2023-08-23 14:10] LABS: HIV 1/2 Ab P24 Ag Result Negative (Negative)
[2023-08-23 14:45] LABS: Hepatitis B Surface Antigen Negative (Negative); Rubella IgG Antibody 24.5 IU/ML
[2023-08-26 13:03] LABS: Rapid Plasma Reagin Non-Reactive (NonReactive)
== END 2023-08-23 10:03 | disposition home or self-care (01) ==
LOC: ANHGOSHLAB 10:03
PROVIDERS: PCP Nurse Practitioner Family; Visit Provider Student in an Organized Health Care Education/Training Program
DX: Z34.90 Encounter for supervision of normal pregnancy, unspecified, unspecified trimester (principal)
CPT/HCPCS: 36415; 84702; 85025; 86592; 86703; 86747; 86762; 86787; 86850; 86900; 86901; 87086; 87340; G0432

== ENCOUNTER 2024-01-17 07:55 | Outpatient (CLI) | payer BC, MEDICAID, SELFPAY ==
[2024-01-17 13:22] LABS: Basophils Absolute Auto 0.1 K/mm3 (0.0-0.1); Basophils Percent Auto 0.5 % (0.2-1.2); Eosinophils Absolute Auto 0.2 K/mm3 (0-0.3); Eosinophils Percent Auto 1.3 % (0-4.4); Hematocrit 35.5 % (37.0-47.0); Hemoglobin 12.1 g/dL (12.0-15.0); Immature Granulocyte Absolute 0.24 K/mm3 (0.00-0.031); Lymphocytes Absolute Auto 1.87 K/mm3 (0.9-3.2); Lymphocytes Percent Auto 15.7 % (18.3-44.2); Mean Corpuscular HGB Conc 34.1 g/dl (32-36); Mean Corpuscular Hemoglobin 31.3 pg (26-34); Mean Corpuscular Volume 91.7 fl (80-100); Mean Platelet Volume 11.7 fl (7.4-10.4); Monocytes Absolute Auto 0.8 K/mm3 (0.1-0.6); Monocytes Percent Auto 6.5 % (2.6-8.5); Neutrophils Absolute Auto 8.8 K/mm3 (1.3-6.7); Platelet Count Result 227 k/mm3 (150-375); Red Blood Count 3.87 M/mm3 (4.2-5.4); Red Cell Distribution Width 13.3 % (11.5-14.5); White Blood Count 11.9 K/mm3 (4.5-10.0)
[2024-01-17 13:55] LABS: Glucose 1 Hour PP 50gm Dose 111 mg/dL
[2024-01-17 14:24] LABS: HIV 1/2 Ab P24 Ag Result Negative (Negative)
== END 2024-01-17 07:56 | disposition home or self-care (01) ==
LOC: ANHGOSHLAB 07:57
PROVIDERS: PCP Nurse Practitioner Family; Visit Provider Obstetrics & Gynecology
DX: Z34.90 Encounter for supervision of normal pregnancy, unspecified, unspecified trimester (principal)
CPT/HCPCS: 36415; 82947; 85025; 86703; G0432

== ENCOUNTER 2024-03-16 15:46 | Outpatient (RCR) | payer BC, MEDICAID, SELFPAY ==
[2024-02-03 17:13] VITALS: BP 107/67; PULSE 87
[2024-02-10 17:34] VITALS: BP 112/75; PULSE 84
[2024-02-24 16:11] VITALS: BP 106/64; PULSE 95
[2024-03-09 17:40] VITALS: BP 107/65; PULSE 95
[2024-03-16 16:19] VITALS: BP 107/70; PULSE 95
== END 2024-04-14 13:28 | disposition home or self-care (01) ==
LOC: ANHOBOP 15:46
PROVIDERS: PCP Nurse Practitioner Family; Visit Provider Obstetrics & Gynecology
DX: O36.5930 Maternal care for other known or suspected poor fetal growth, third trimester, not applicable or unspecified (principal); Z3A.31 31 weeks gestation of pregnancy; O43.893 Other placental disorders, third trimester; Z3A.32 32 weeks gestation of pregnancy; Z3A.34 34 weeks gestation of pregnancy; Z3A.35 35 weeks gestation of pregnancy; Z3A.36 36 weeks gestation of pregnancy; Z3A.37 37 weeks gestation of pregnancy
CPT/HCPCS: 59025

== ENCOUNTER 2024-04-03 16:52 | Inpatient (IN) | payer BC, MEDICAID, SELFPAY ==
--- NOTE | 2024-04-03 17:03 | PM.IMHP ---
H&P: HPI History of Present Illness Date/Time: 04/03/24 17:03 Chief Complaint: Induction of labor Narrative: Shilpa is a 23yo @ 39.6wk who presents for elective IOL. She denies contractions. No VB or LOF. Her is complicated by: - unplanned - anxiety/depression - h/o recurrent UTIs - LOW LYING placenta-- RESOLVED Review of Systems Constitutional: Constitutional: Denies chills, Denies fever(s) and Denies headache(s) Eyes: Eyes: Denies change in vision ENT: Denies headache(s) Cardiovascular: Cardiovascular: Denies chest pain and Denies dyspnea Respiratory: Respiratory: Denies dyspnea Genitourinary: Genitourinary: Denies abnormal vaginal bleeding and Denies vaginal discharge Neurologic: Denies headache(s) Psychiatric: Psychiatric: Denies anxiety and Denies depression [facility] Past Medical History Medical History BMI 26.0-26.9,adult Change in bowel habits Chronic constipation Family hx colonic polyps Pelvic floor dysfunction test performed, confirmed Reactive depression Recurrent UTI Surgical History Surgical History H/O hand surgery at age 3 right hand History of excision of pilonidal cyst Family History Family History Father Hypertension Alcoholism Depression Heart problem Mother Hypertension Alcoholism Depression Grandparent Hypertension Acute myocardial infarction Family history of Alzheimer's disease Family history of malignant neoplasm of breast Family history of throat cancer Breast cancer Diabetes mellitus Sibling No problems noted. 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 Gender identity (if verbalized by the patient): Female Sexual Orientation (if Verbalized by the Patient): Straight or Heterosexual Spiritual care concerns: No Meds Home Medications and Allergies Home Medications Medication Instructions Recorded Confirmed Type vits 75-iron 28 mg-folic 1 pkg PO QHS 02/10/24 04/01/24 History acid 800 mcg-omega3 440 mg oral pack Allergies Allergy/AdvReac Type Severity Reaction Status Date / Time No Known Allergies Allergy Verified 04/01/24 16:50 Exam Const: General: cooperative, healthy appearing, comfortable and no acute distress Orientation/consciousness: patient oriented x3 Resp: Effort & Inspection: normal respiratory effort Cardio: Rate: regular rate GI: GI Palp: No abdominal tenderness : Other: FHT's: 150's/ mod valentino/ + accels/ no decels - cat 1 TOCO: irregular ctxs Cervix: 0.5/50/-3 Membranes: intact Presentation: cephalic Skin: General skin exam: normal color Neuro: General: patient oriented x3 Extrem: General: normal to inspection Psych: Appearance: grossly normal Affect: normal affect Attitude: cooperative Assessment and Plan Assessment and plan (1) Encounter for elective induction of labor: Code(s): Z34.90 - Encounter for supervision of normal , unspecified, unspecified trimester Status: Acute Plan - Admitted to L&D for IOL
[2024-04-03 17:40] LABS: Basophils Percent Auto 0.3 % (0.2-1.2); Eosinophils Absolute Auto 0.1 K/mm3 (0-0.3); Hematocrit 33.4 % (37.0-47.0); Hemoglobin 11.5 g/dL (12.0-15.0); Immature Granulocyte Absolute 0.27 K/mm3 (0.00-0.031); Lymphocytes Absolute Auto 2.79 K/mm3 (0.9-3.2); Lymphocytes Percent Auto 20.2 % (18.3-44.2); Mean Corpuscular HGB Conc 34.4 g/dl (32-36); Mean Corpuscular Hemoglobin 29.8 pg (26-34); Mean Corpuscular Volume 86.5 fl (80-100); Mean Platelet Volume 11.6 fl (7.4-10.4); Monocytes Absolute Auto 1.3 K/mm3 (0.1-0.6); Monocytes Percent Auto 9.5 % (2.6-8.5); Neutrophils Absolute Auto 9.3 K/mm3 (1.3-6.7); Platelet Count Result 238 k/mm3 (150-375); Red Blood Count 3.86 M/mm3 (4.2-5.4); Red Cell Distribution Width 13.1 % (11.5-14.5); White Blood Count 13.8 K/mm3 (4.5-10.0)
[2024-04-03] MEDS: DINOPROSTONE 10 MG VAG INSERT VAGINAL (17:41)
[2024-04-03 17:42] VITALS: BMI 32.6
--- NOTE | 2024-04-03 17:44 | LDADM ---
This patient, Shilpa Barclay, was admitted to Labor/Delivery/Recovery 106 on 04/03/24 at 16:52. Plans for labor, pain management and were discussed with patient. Patient/family oriented to hospital policies and general routines including ID bracelet, bed and alarms, visiting hours, pain management, procedures, bathroom and other care routines, personal items, smoking policy, room service/diet and guest tray routines, security routines, and visiting hours. Patient/Family are encouraged to report perceived risks to care and to ask questions if they do not understand what they are told or what they should do. See OBIX for further documentation.
[2024-04-03 17:53] VITALS: BP 113/70; PULSE 102
[2024-04-03 18:00] VITALS: BP 113/74; PULSE 93; TEMP 36.7
[2024-04-03 18:33] LABS: Rapid Plasma Reagin Non-Reactive (NonReactive)
--- NOTE | 2024-04-03 18:51 | WPDANESEPP ---
Anes - Eval Pre Procedure Procedure: Labor epidural Date/Time: 04/03/24 18:51 Surgeon: Casey Preop Diagnosis: Abdominal pain with contractions Pre Op Diagnosis: Induction of Labor Patient Data Age: 23 Gender: F Height: 1.65 m Weight: 89 kg Last Vital Signs Temp 98.1 F 04/03/24 18:00 Pulse 93 04/03/24 18:00 BP 113/74 04/03/24 18:00 O2 Del Method Room Air 04/03/24 17:42 Allergies Allergy/AdvReac Type Severity Reaction Status Date / Time No Known Allergies Allergy Verified 04/01/24 16:50 Home Medications Medication Instructions Recorded Confirmed Type vits 75-iron 28 mg-folic 1 pkg PO QHS 02/10/24 04/03/24 History acid 800 mcg-omega3 440 mg oral pack Laboratory Tests 04/03/24 17:31 WBC 13.8 H K/mm3 (4.5-10.0) RBC 3.86 L M/mm3 (4.2-5.4) Hgb 11.5 L g/dL (12.0-15.0) Hct 33.4 L % (37.0-47.0) MCV 86.5 fl (80-100) MCH 29.8 pg (26-34) MCHC 34.4 g/dl (32-36) RDW 13.1 % (11.5-14.5) Plt Count 238 k/mm3 (150-375) MPV 11.6 H fl (7.4-10.4) Immature Gran % (Auto) 2.0 H % (0-0.5) Neut % (Auto) 67.0 % (45.5-73.1) Lymph % (Auto) 20.2 % (18.3-44.2) [place] % (Auto) 9.5 H % (2.6-8.5) Eos % (Auto) 1.0 % (0-4.4) Baso % (Auto) 0.3 % (0.2-1.2) Lymph # (Auto) 2.79 K/mm3 (0.9-3.2) [place] # (Auto) 1.3 H K/mm3 (0.1-0.6) Eos # (Auto) 0.1 K/mm3 (0-0.3) Baso # (Auto) 0.0 K/mm3 (0.0-0.1) Abs Immat Gran (auto) 0.27 H K/mm3 (0.00-0.031) Absolute Neuts (auto) 9.3 H K/mm3 (1.3-6.7) Absolute Nucleated RBC 0.000 K/mm3 (0.0-0.012) Nucleated RBC % 0.0 % (0.0-0.2) RPR Non-reactive (NonReactive) HIV 1&2 Ab/P24 Ag 4thGn Pending Blood Type A Positive Antibody Screen Negative : gestational age HCG: positive Patient hx anesthesia problems: none Family hx anesthesia problems: none Results Review: All pre-operative results and documents have been reviewed as part of the pre-operative evaluation. [facility] Past Medical History Medical History Anxiety with depression BMI 26.0-26.9,adult Change in bowel habits Chronic constipation Family hx colonic polyps Obesity Pelvic floor dysfunction test performed, confirmed and not yet delivered Reactive depression Recurrent UTI Surgical History Surgical History H/O hand surgery at age 3 right hand History of excision of pilonidal cyst Family History Family History Father Hypertension Alcoholism Depression Heart problem Mother Hypertension Alcoholism Depression Grandparent Hypertension Acute myocardial infarction Family history of Alzheimer's disease Family history of malignant neoplasm of breast Family history of throat cancer Breast cancer Diabetes mellitus Sibling No problems noted. Other High cholesterol Social History Social History Smoking status: Never smoker Second hand tobacco smoke exposure: No Alcohol intake: never Alcohol use details: monthly Substance use: never Substance use type: does not use Do You Feel Safe in your Home?: Yes Lack of Transportation: No Lack of Food: Sometimes True Current Housing: I Have Housing Concerned About Future Housing: No Difficulty Paying Gas/Electric Bills: No Difficulty Paying for Meds: No Currently Unemployed: No Education: Bachelor's Degree Difficulty w/ Childcare or Family Care: No Living arrangements: with family Occupation/Education: occupation 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 Gender identity (if verbalized by the patient): Female Sexual Or
[2024-04-03 19:00] VITALS: BP 115/71; PULSE 90
[2024-04-03 20:00] VITALS: BP 122/85; PULSE 106
[2024-04-03 21:00] VITALS: BP 108/64; PULSE 89
[2024-04-03 22:07] LABS: HIV 1/2 Ab P24 Ag Result Negative (Negative)
[2024-04-03] MEDS: CALCIUM CARBONATE (TUMS) 500 MG (200 MG ELEMENTAL) PO (22:16)
[2024-04-03 22:58] VITALS: TEMP 36.8
[2024-04-04] VITALS (247 sets, daily range): BP systolic 60–130; BP diastolic 45–94; PULSE 55–194; TEMP 36.6–37.3; O2SAT 93–100
[2024-04-04] MEDS: fentaNYL CITRATE INJ (*CRX) 100 MCG/2 ML VIAL 50 MCG IV PUSH (08:15)
--- NOTE | 2024-04-04 08:24 | PM.OBPNLAB ---
Pain Control Date/time seen: 04/04/24 08:24 Pain control: narcotic analgesia Pelvic Exam Dilation (cm): 1 Effacement (%): 50 station: -2 Amniotic membrane status: Intact Contractions Monitor mode: External Contraction frequency: 3 Contraction pattern: Regular Status status: Category l Assessment and Plan Plan: continuous present management Comments: - Cook balloon placed 0815 w/ 60cc in each balloon - will start low dose pitocin
[2024-04-04] MEDS: LACTATED RINGERS 1,000 ML 125 ML IV CONT (08:44)
[2024-04-04] MEDS: FAMOTIDINE 20 MG/2 ML VIAL IV PUSH (08:44)
[2024-04-04] MEDS: ONDANSETRON INJ 4 MG/2 ML VIAL IV PUSH (08:47)
[2024-04-04] MEDS: OXYTOCIN 30 UNITS/NS 500 ML 30 UNITS/500 ML BAG IV CONT (08:50)
[2024-04-04] MEDS: CALCIUM CARBONATE (TUMS) 500 MG (200 MG ELEMENTAL) PO (08:53)
[2024-04-04] MEDS: fentaNYL CITRATE INJ (*CRX) 100 MCG/2 ML VIAL IV PUSH (09:28)
[2024-04-04] MEDS: LACTATED RINGERS 1,000 ML 999 ML IV CONT ×2 (10:03→18:21)
--- NOTE | 2024-04-04 15:34 | PM.OBPNLAB ---
Pain Control Date/time seen: 04/04/24 15:34 Pain control: epidural Comments: cook balloon removed on this exam Pelvic Exam Dilation (cm): 5 Effacement (%): 90 station: -2 Amniotic membrane status: Ruptured (AROM, clear 1525) Contractions Monitor mode: Internal Contraction frequency: 3 Contraction pattern: Regular Contraction intensity: Strong/Firm Status status: Category l Assessment and Plan Pitocin rate (mU/min): 8 Plan: continuous present management
[2024-04-05] VITALS (140 sets, daily range): BP systolic 73–131; BP diastolic 37–85; PULSE 61–223; RESP 16; TEMP 36.1–38.6; O2SAT 94–100
[2024-04-05] MEDS: LACTATED RINGERS 1,000 ML 999 ML IV CONT (02:35)
[2024-04-05] MEDS: ACETAMINOPHEN 500 MG TABLET 1000 MG (03:05)
[2024-04-05] MEDS: OXYTOCIN 30 UNITS/NS 500 ML 30 UNITS/500 ML BAG 14 UNITS IV CONT (07:27)
[2024-04-05] MEDS: FAMOTIDINE 20 MG/2 ML VIAL (07:28)
[2024-04-05] MEDS: miSOPROStol 200 MCG TABLET 800 MCG (08:36)
[2024-04-05] MEDS: METHYLERGONOVINE MALEATE 0.2 MG/ML VIAL IM (08:40)
[2024-04-05] MEDS: OXYTOCIN 30 UNITS/NS 500 ML 30 UNITS/500 ML BAG 125 UNITS IV CONT (09:00)
--- NOTE | 2024-04-05 09:13 | PM.OBPRVD ---
OB - Vaginal Delivery Note Procedure Delivery date: 04/05/24 Events: Elective Induction of Labor Intrapartal Events: Other (prolonged induction) Induction method: Per Cervidil Protocol and Other (Cook balloon) Delivery augmentation: Rupture of Membranes and Pitocin Delivery monitor: External FHT and Internal Uterine Route of delivery: Episiotomy description: None Laceration Description: Periurethral (right side) Delivery repair: vicryl Specimen: Yes (placenta) Quantitative Blood Loss (ml): 450 Anesthesia type: Epidural Disposition: Floor Complications: No immediate complications Baby Date of : 04/05/24 Time of : 08:28 Gestational Age by Date: 40 (.1) Infant gender: Female presentation: vertex position: Right Occiput Anterior Placenta delivery description: Expressed Cord Vessel Description: 3 Vessels, Nuchal Cord, Loose and Delayed Cord Clamping score one minute: 8 score five minutes: 9 Narrative: Shilpa had a prolonged induction with Cervidil and Cook balloon for cervical ripening. After removal of the Cook balloon, AROM was performed and Pitocin augmentation was increased, however she remained 5 cm for longer than 12 hours. Pitocin break as well as peanut ball/multiple maneuvers were performed and she rapidly progressed to complete dilation with strong desire to push. She pushed for approximately 10 minutes with good maternal effort and delivered the head over intact perineum. Nuchal cord was noted but loose and delivered through. She easily delivered the 's shoulders and body without complication. The was immediately placed skin to skin and had spontaneous cry. Delayed cord clamping was performed. The umbilical cord was then doubly clamped and cut. A segment of the cord was collected for cord gases. The remaining cord blood was collected for typing. With Pitocin running and gentle downward traction on the cord, the placenta delivered without complications. Brisk bleeding was noted and bimanual massage revealed uterine atony. The atony did respond to uterine massage but due to her long induction Cytotec 800 mcg was placed rectally. She was examined and a small right periurethral laceration was identified. It was repaired in the normal fashion using 3-0 Vicryl. Bimanual massage was once again performed and uterine atony with clots were noted. The clots were removed without issue and with massage the uterus did once again respond and good tone was noted Methergine 0.2 mg was given IM and the uterus then remained firm with minimal bleeding. Sponge, lap, instrument, needle counts were correct at the end the procedure. Mom and baby were left bonding in birthing suite in stable condition.
[2024-04-05] MEDS: ONDANSETRON INJ 4 MG/2 ML VIAL IV PUSH (09:47)
[2024-04-05] MEDS: WITCH HAZEL 40 PADS 1 PAD TOPICAL (10:05)
[2024-04-05] MEDS: IBUPROFEN 600 MG TABLET PO ×2 (10:05→20:14)
[2024-04-05] MEDS: BENZOCAINE 20% AER SPR (*SP) 56 GM CAN 1 SPRAY TOPICAL (10:05)
[2024-04-05] MEDS: ACETAMINOPHEN 325 MG TABLET 650 MG PO ×2 (10:05→20:14)
[2024-04-05] MEDS: AMPICILLIN 2 GM/NS 100 ML 2 GM/100 ML BAG IVPB ×3 (10:59→23:26)
--- NOTE | 2024-04-05 11:15 | OBPPTRN ---
Patient transferred to post room #281 via wheelchair. Support person present. Oriented to unit, room, information board, rooming in, admission packet and security measures. Patient verbalizes understanding.
[2024-04-05] MEDS: GENTAMICIN SULFATE INJ 445 MG in DEXTROSE 5% 100 ML 100 MG IVPB (13:16)
[2024-04-05] MEDS: SODIUM CHLORIDE 0.9% IV 100 ML 50 ML (23:25)
[2024-04-06 03:50] VITALS: BP 101/67; PULSE 58; RESP 16; TEMP 36.3; O2SAT 99
[2024-04-06] MEDS: IBUPROFEN 600 MG TABLET PO (03:56)
[2024-04-06] MEDS: ACETAMINOPHEN 325 MG TABLET 650 MG PO (03:56)
[2024-04-06] MEDS: AMPICILLIN 2 GM/NS 100 ML 2 GM/100 ML BAG IVPB (04:58)
[2024-04-06 05:56] LABS: Hematocrit 33.2 % (37.0-47.0); Hemoglobin 11.4 g/dL (12.0-15.0); Mean Corpuscular HGB Conc 34.3 g/dl (32-36); Mean Corpuscular Hemoglobin 30.3 pg (26-34); Mean Corpuscular Volume 88.3 fl (80-100); Mean Platelet Volume 11.8 fl (7.4-10.4); Platelet Count Result 205 k/mm3 (150-375); Red Blood Count 3.76 M/mm3 (4.2-5.4); Red Cell Distribution Width 13.3 % (11.5-14.5); White Blood Count 17.7 K/mm3 (4.5-10.0)
[2024-04-06 06:05] LABS: Alanine Aminotransferase 10 U/L (6-35); Albumin Level 2.6 g/dL (3.5-5.1); Alkaline Phosphatase 93 U/L (38-126); Anion Gap 6 mmol/L (4-12); Aspartate Amino Transferase 26 U/L (14-36); Bilirubin,Total 0.6 mg/dL (0.2-1.3); Blood Urea Nitrogen 5 mg/dL (7-17); Calcium 8.1 mg/dL (8.4-10.2); Carbon Dioxide 23 mmol/L (22-30); Chloride 106 mmol/L (98-107); Estimated CRCL calculation 159 ml/min; Estimated Glomerular Filt Rate > 60; Glucose 87 mg/dL (65-110); Potassium 3.6 mmol/L (3.4-5.0); Sodium 135 mmol/L (137-145)
--- NOTE | 2024-04-06 07:16 | PM.OBPNVD ---
OB - PN: Subj Subjective Date/time seen: 04/06/24 07:17 Narrative: PPD#1 Shilpa reports doing well today. 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 Her pain is controlled. She is tolerating regular diet, voiding, passing gas, and ambulating without issues. She is breast feeding. She has been afebrile. OB - PN: Obj Data Labs 04/06/24 05:15 04/06/24 05:15 OB - PN A/P Assessment and Plan (1) Normal vaginal delivery of first : Code(s): O80 - Encounter for full-term uncomplicated delivery Status: Acute (2) Chorioamnionitis: Qualifiers: Fetus number: single or unspecified fetus Trimester: third trimester Qualified Code(s): O41.1230 - Chorioamnionitis, third trimester, not applicable or unspecified Code(s): O41.1290 - Chorioamnionitis, unspecified trimester, not applicable or unspecified Status: Acute Plan day: 1 Plan: routine care Comments: - Chorio: gentamicin 5mg/kg + ampicillin 2g q6h x 24 hours-- afebrile since - PO pain meds - Regular diet - Ambulation and hydration encouraged - Continue putting baby to breast q2-3hr Time Spent With Patient Time: Total time spent is greater than 50% in coordination of care (as documented) at patient's floor/unit and/or counseling patient: Review of Systems Constitutional: Constitutional: Denies chills, Denies fever(s) and Denies headache(s) Eyes: Eyes: Denies change in vision ENT: Denies dizziness and Denies headache(s) Cardiovascular: Cardiovascular: Denies chest pain, Denies palpitations and Denies dyspnea Respiratory: Respiratory: Denies cough and Denies dyspnea Gastrointestinal: Gastrointestinal: Denies nausea and Denies vomiting Neurologic: Denies dizziness and Denies headache(s) Endocrine: Endocrine: Denies palpitations Exam Const: General: cooperative, comfortable and no acute distress Orientation/consciousness: patient oriented x3 Resp: Effort & Inspection: normal respiratory effort Auscultation: clear to auscultation bilaterally Cardio: Rate: regular rate GI: Inspection: non-distended GI Palp: No abdominal tenderness and Yes Soft to palpation Auscultation: normal bowel sounds : Other: fundus firm Skin: General skin exam: normal color Neuro: General: patient oriented x3 Extrem: General: normal to inspection Psych: Appearance: grossly normal Affect: normal affect Attitude: cooperative
[2024-04-06 07:30] VITALS: BP 97/56; PULSE 98; RESP 16; TEMP 36.8; O2SAT 98
[2024-04-06] MEDS: DOCUSATE SODIUM 100 MG CAPSULE PO (08:05)
[2024-04-06] MEDS: MULTIVIT/MIN/PREN/FOL AC/IRON TABLET 1 TAB PO (08:05)
--- NOTE | 2024-04-06 09:05 | PC.NURSE ---
Met with mother to assess needs related to . Mother states that she is having some pain, but she isn't sure if it's pinching or if it continues throughout the feeding. Discussed signs of a deep latch and encouraged mother to call out at feeding time so that we may check a latch and give and assistance needed. Mother agrees to call when she feeds next.
--- NOTE | 2024-04-06 11:00 | PC.NURSE ---
Mother demonstrates she is able to independently latch . We repositioned so she was tummy to tummy with mom. We also worked on techniques for waking baby. She complains of nipple discomfort but denies constant pain or pinching. She says her nipple looks the same before and after nursing. is currently meeting outcomes for weight, output, jaundice, blood sugar and feeding frequencies of 8-12 times in 24 hours. Baby maintains the latch with frequent swallows. Mother educated on listening for swallowing. Mother declines any additional assistance or education at this time. Mother is encouraged to call for assistance if her infant doesn?t latch, pain with latching, questions or concerns. Mother voiced understanding of information shared along with the mom/baby guide for an additional resource. Reported to the Primary RN.
--- NOTE | 2024-04-06 14:44 | WPDANLDPN2 ---
Anes-Prog Note L&D Date/Time: 04/06/24 14:44 Comfortable throughout: labor and delivery Neuraxial method: epidural Epidural/Spinal procedure site: clean & non-tender Neuro status: Neuro function grossly intact. Cardiovascular status: normal Respiratory status: normal Airway patency: baseline Mental status: baseline Post-Op hydration status: normal Vital Signs: Last Vital Signs Temp 36.8 C 04/06/24 07:30 Pulse 98 04/06/24 07:30 Resp 16 04/06/24 07:30 BP 97/56 L 04/06/24 07:30 Pulse Ox 98 04/06/24 07:30 O2 Del Method Room Air 04/03/24 17:42 Pain score (VAS): 0 I/O: Intake & Output 04/05/24 04/06/24 04/06/24 23:59 07:59 15:59 Intake Total 340 100 Balance 340 100 Post-procedural complaints: none Patient feedback: Patient satisfied with anesthetic care.
[2024-04-06 19:29] VITALS: BP 117/76; PULSE 51; RESP 20; TEMP 36.6; O2SAT 97
--- NOTE | 2024-04-07 08:21 | PM.OBDSVD ---
DS: Admitting Diagnosis Discharge Date 04/07/24 Admitting Diagnosis Elective induction of labor DS: Discharge Diagnosis Discharge Diagnosis (1) Normal vaginal delivery of first : Code(s): O80 - Encounter for full-term uncomplicated delivery Status: Acute (2) Chorioamnionitis: Qualifiers: Fetus number: single or unspecified fetus Trimester: third trimester Qualified Code(s): O41.1230 - Chorioamnionitis, third trimester, not applicable or unspecified Code(s): O41.1290 - Chorioamnionitis, unspecified trimester, not applicable or unspecified Status: Acute OB - DS: Summary OB Procedures : NST and Ultrasound OB Procedures Intrapartum: Spontaneous Vag Delivery OB Procedures: : Antibiotics Peripartum Data Delivery Method: Natural Vaginal Laceration Description: Periurethral (right side) Episiotomy description: None complications: none 1: Gender: Female Disposition of : home Status at Discharge Functional status at discharge: independent ambulation Overall status at discharge: patient is back to baseline Time Spent with Patient Time attestation: Total time spent providing and/or coordinating discharge services: Exam Const: General: cooperative, healthy appearing, comfortable and no acute distress Orientation/consciousness: patient oriented x3 Resp: Effort & Inspection: normal respiratory effort Auscultation: clear to auscultation bilaterally Cardio: Rate: regular rate GI: Inspection: non-distended GI Palp: No abdominal tenderness and Yes Soft to palpation Auscultation: normal bowel sounds : Other: fundus firm Skin: General skin exam: normal color Neuro: General: patient oriented x3 Extrem: General: normal to inspection Psych: Appearance: grossly normal Affect: normal affect Attitude: cooperative DS: Data Data Completed and Pending Pending studies at discharge: Pending at discharge 04/05/24 08:32 Surgical [PTH] Routine Labs on day of discharge: Labs from last 24 hours 04/06/24 05:15 WBC 17.7 H RBC 3.76 L Hgb 11.4 L Hct 33.2 L MCV 88.3 MCH 30.3 MCHC 34.3 RDW 13.3 Plt Count 205 MPV 11.8 H Sodium 135 L Potassium 3.6 Chloride 106 Carbon Dioxide 23 Anion Gap 6 BUN 5 L D Creatinine 0.50 L Estim Creat Clear Calc 159 Estimated GFR > 60 Glucose 87 Calcium 8.1 L Total Bilirubin 0.6 AST 26 ALT 10 Alkaline Phosphatase 93 Total Protein 5.0 L Albumin 2.6 L Discharge Plan Discharge Attending physician on discharge: Adriana Peña Discharging Clinician: Adriana Peña Patient Disposition: Home, Self-Care Activity: may shower and pelvic rest Diet: regular Patient Instructions: Vaginal Delivery (DC) Stand Alone Forms: General Discharge Information Follow-up/Referrals: Adriana Peña MD [Physician] - 4 Weeks Discharge Medications: New docusate sodium 100 mg Capsule 100 mg PO BID PRN (Reason: Constipation) Qty: 90 0RF acetaminophen 500 mg tablet 1,000 mg PO TID Qty: 60 0RF ibuprofen 800 mg tablet 800 mg PO TID Qty: 30 0RF Continued Daily [id number] mg-mcg-mg Combo Pack 1 pkg PO QHS Date of admission: 04/03/24 16:52 Primary Care Provider: Josefina Rivas Admitting Provider: Adriana Peña Attending physician on admission: Adriana Peña Condition: Stable
[2024-04-07 08:45] VITALS: BP 113/66; PULSE 64; RESP 18; TEMP 36.6; O2SAT 99
--- NOTE | 2024-04-07 08:45 | PC.NURSE ---
Per night RN, patient is very anxious and tearful. They supplemented in the night due to being fussy and having an elevated bilirubin. Mom has refused a pump so far. I offered her a pump again if she would like, but she declines. She has a wearable pump at home. Dad asked some good questions about pumping and storage of breastmilk. We also discussed use of breastmilk, and how to warm under warm water or feed at room temperature. Mother was withdrawn and did not ask any questions. She has the phone number on her board if she desires any further assistance or education with . Reported to Primary RN.
[2024-04-07] MEDS: MULTIVIT/MIN/PREN/FOL AC/IRON TABLET 1 TAB PO (10:17)
[2024-04-08 09:22] VITALS: BP 115/71; PULSE 78; RESP 18; TEMP 36.5; O2SAT 100
== END 2024-04-07 11:23 | disposition home or self-care (01) | DRG 805 ==
LOC: ANHLDR 16:57 → ANHOB2 04-05 11:16
PROVIDERS: Admitting Provider Obstetrics & Gynecology; PCP Nurse Practitioner Family; Visit Provider Obstetrics & Gynecology
DX: O69.81X0 Labor and delivery complicated by cord around neck, without compression, not applicable or unspecified (principal); O41.1230 Chorioamnionitis, third trimester, not applicable or unspecified; Z37.0 Single live birth; Z3A.40 40 weeks gestation of pregnancy; O71.82 Other specified trauma to perineum and vulva; O63.0 Prolonged first stage (of labor); F41.8 Other specified anxiety disorders; O99.344 Other mental disorders complicating childbirth; O36.8330 Maternal care for abnormalities of the fetal heart rate or rhythm, third trimester, not applicable or unspecified
CPT/HCPCS: 36415; 80053; 85025; 85027; 86592; 86703; 86850; 86900; 86901; 88307; A9270; G0432; J0290; J1580; J2210; J2405; J2590; J2795; J3010; J7120

== ENCOUNTER 2024-12-14 13:26 | Outpatient (CLI) | payer MEDICAID, SELFPAY ==
[2024-12-14 14:26] LABS: Basophils Absolute Auto 0.1 K/mm3 (0.0-0.1); Basophils Percent Auto 0.6 % (0.2-1.2); Eosinophils Absolute Auto 0.1 K/mm3 (0-0.3); Eosinophils Percent Auto 1.7 % (0-4.4); Hematocrit 39.5 % (37.0-47.0); Hemoglobin 13.6 g/dL (12.0-15.0); Immature Granulocyte Absolute 0.01 K/mm3 (0.00-0.031); Immature Granulocyte Percent A 0.1 % (0-0.5); Lymphocytes Absolute Auto 2.35 K/mm3 (0.9-3.2); Lymphocytes Percent Auto 29.3 % (18.3-44.2); Mean Corpuscular HGB Conc 34.4 g/dl (32-36); Mean Corpuscular Hemoglobin 29.2 pg (26-34); Mean Corpuscular Volume 84.9 fl (80-100); Mean Platelet Volume 10.8 fl (7.4-10.4); Monocytes Absolute Auto 0.5 K/mm3 (0.1-0.6); Monocytes Percent Auto 6.6 % (2.6-8.5); Neutrophils Absolute Auto 4.9 K/mm3 (1.3-6.7); Neutrophils Percent Auto 61.7 % (45.5-73.1); Platelet Count Result 308 k/mm3 (150-375); Red Blood Count 4.65 M/mm3 (4.2-5.4); Red Cell Distribution Width 12.5 % (11.5-14.5)
--- OUTSIDE RECORDS SUMMARY | 2024-12-14 15:09 | XMS_ITS | Clinical Summary ---
Author Organization [facility] + Address [address] [place] [address] Care Team Providers Care District Scout Executive Name Role Phone Tonia Thornton MD Primary Care Provider [phone] Source Comments [facility] +,non-owned Affiliates and Associated Physician Practices is amultiple site organization consisting of ambulatory clinics and hospital sitesin [place], [place], [place] and [place]. This disclosure is being madepursuant to the Care Everywhere program and may not contain all information available regarding this patient. Last updated [employer] Allergies No known active allergies Medications * Be aware that medications may not be up to date on this document. Alwaysverify current medications with the patient. 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 Gender Identity Not on file Sexual Orientation Not on file Last Filed Vital Signs Vital Sign Reading Time Taken Comments Blood Pressure 100/72 08/11/2017 11:41 AM GRAVEL MACHINE OPERATOR Pulse 67 08/11/2017 11:41 AM GRAVEL MACHINE OPERATOR Temperature 36.7 C (98.1 F) 08/11/2017 11:41 AM GRAVEL MACHINE OPERATOR Respiratory Rate 16 08/11/2017 11:41 AM GRAVEL MACHINE OPERATOR Oxygen Saturation 98% 08/11/2017 11:41 AM GRAVEL MACHINE OPERATOR Inhaled Oxygen Concentration - - Weight 63.5 kg (140 lb) 08/11/2017 11:41 AM GRAVEL MACHINE OPERATOR Height 162.6 cm (5' 4 ) 08/11/2017 11:41 AM GRAVEL MACHINE OPERATOR Body Mass Index 24.03 08/11/2017 11:41 AM GRAVEL MACHINE OPERATOR Plan of Treatment Health Maintenance Due Date Last Done Comments PAP SMEAR 1999 HIV SCREENING 2014 HPV VACCINE (1 - 3-dose series) 2014 CHLAMYDIA/GONORRHEA SCREENING 2015 HEPATITIS C SCREENING 04/30/2017 DTAP/TDAP/TD VACCINES (1 - Tdap) 2018 HEPATITIS B VACCINE (1 of 3 - 19+ 3-dose series) 2018 COVID-19 VACCINE (3 - 2023-2 5 season) 2024 05/02/2021, 04/09/2021 DEPRESSION SCREENING 08/26/2024 INFLUENZA VACCINE (Season Ended) 2025 05/06/2023, 04/24/2017, 04/07/2013 ZOSTER VACCINE (1 of 2) 2049 HIB VACCINE Aged Out No longer eligi ble based on patient's age to complete this topic MENINGOCOCCAL (Group B) VACCINE SHARED DECISION-MAKING Aged Out No longer eligible based on patient's age to complete this topic MENINGOCOCCAL GROUPS A/C/Y/W VACCINE Aged Out No longer eligible b ased on patient's age to complete this topic PNEUMOCOCCAL VACCINE Aged Out No long er eligible based on patient's age to complete this topic Insurance [facility] [place] SELF PAY NO INSURANCE Member Subscriber Plan / Payer (Ef fective for All Dates) Name:Shilpa Alvarado Member ID:Not on file Relation to Subscriber:Not on file Name:SHILPA ALVARADO Subscriber ID:Not on file (Home) Address: [address] [place] [id number] Payer ID:Not on file Group ID:Not on file Type:Self Pay Address: [place], [place] Care Teams District Scout Executive Relationship Specialty Start Date End Date Tonia Thornton MD [address] [facility] [place] [address] PCP - General Pediatrics 08/11/17
--- OUTSIDE RECORDS SUMMARY | 2024-12-14 15:09 | XMS_ITS | Encounter Summary ---
Author Organization [facility] Address [address] [place] [address] Care Team Providers Care Burn Table Operator Name Role Phone Slava Morrison MD Primary Care Provider [phone] Encounter Details Date Type Department Care Team (Late st Contact Info) Description 10/15/2003 Outpatient Historical [facility] Conversion, History Social History Tobacco Use Types Packs/Day Years Used Date Smoking Tobacco: Never Assessed Comments Unknown Sex and Gender Information Value Date Recorded Sex Assigned at Not on file Legal Sex Female 3:52 AM CONSTRUCTION REPRESENTATIVE Gender Identity Not on file Sexual Orientation Not on file documented as of this encounter Plan of Treatment Not on file documented as of this encounter Visit Diagnoses Not on filedocumented in this encounter Care Teams Burn Table Operator Relationship Specialty Start Date End Date Slava Morrison MD PCP - General 09/13/03 documented as of this encounter
--- OUTSIDE RECORDS SUMMARY | 2024-12-14 15:09 | XMS_ITS | Encounter Summary ---
Author Organization [employer] Address [address] [place] [address] Care Team Providers Care Nuclear Radiologist Name Role Phone Slava Morrison MD Primary Care Provider [phone] Encounter Details Date Type Department Care Team (Latest Contact Info) Description 09/02/2003 Outpatient Historical [facility] [place] [address] [address] SCAR & FIBROSIS OF SKIN (Primary Dx) Social History Tobacco Use Types Packs/Day Years Used Date Smoking Tobacco: Never Assessed Comments Unknown Sex and Gender Information Value Date Recorded Sex Assigned at Not on file Legal Sex Female 3:52 AM PIPELINE GANG SUPERVISOR Gender Identity Not on file Sexual Orientation Not on file documented as of this encounter Plan of Treatment Not on file documented as of this encounter Visit Diagnoses Diagnosis Scar condition and fibrosis of skin- Primary documented in this encounter Care Teams Nuclear Radiologist Relationship Specialty Start Date End Date Slava Morrison MD PCP - General 09/13/03 documented as of this encounter
--- OUTSIDE RECORDS SUMMARY | 2024-12-14 15:09 | XMS_ITS | Encounter Summary ---
Author Organization [facility] Address [address] [place] [address] Care Team Providers Care Belt Builder Helper Name Role Phone Slava Morrison MD Primary Care Provider [phone] Encounter Details Date Type Department Care Team (Latest Contact Info) Description 09/13/2003 Outpatient Historical [facility] Conversion, History OPEN WOUND OF HAND (Primary Dx) Social History Tobacco Use Types Packs/Day Years Used Date Smoking Tobacco: Never Assessed Comments Unknown Sex and Gender Information Value Date Recorded Sex Assigned at Not on file Legal Sex Female 3:52 AM CHIEF ENGINEER PRODUCTION Gender Identity Not on file Sexual Orientation Not on file documented as of this encounter Plan of Treatment Not on file documented as of this encounter Visit Diagnoses Diagnosis Open wound of hand except finger(s) alone, without mention of complication- Primary documented in this encounter Care Teams Belt Builder Helper Relationship Specialty Start Date End Date Slava Morrison MD PCP - General 09/13/03 documented as of this encounter
--- OUTSIDE RECORDS SUMMARY | 2024-12-14 15:09 | XMS_ITS | Clinical Summary ---
Author Organization [facility] Address [address] [facility] Attn: Epic Prelude ADT [place] [address] Care Team Providers Care Coordinate Measuring Machine Programmer Name Role Phone Slava Morrison MD Primary Care Provider [phone] Social History Tobacco Use Types Packs/Day Years Used Date Smoking Tobacco: Never Assessed Comments Unknown Sex and Gender Information Value Date Recorded Sex Assigned at Not on file Legal Sex Female 3:52 AM SHEET ROCK SANDER Gender Identity Not on file Sexual Orientation Not on file Plan of Treatment Health Maintenance Due Date Last Done Comments HPV VACCINES (1 - 3-dose series) 2014 DTAP/TDAP/TD VACCINES (1 - Tdap) 2018 HEPATITIS B VACCINES (1 of 3 - 19+ 3-dose series) 04/26 CERVICAL CANCER SCREENING 2020 HPV/Cotest (21-29) 2020 PAP SMEAR 2020 INFLUENZA VACCINE (#1) 2024 Care Teams Coordinate Measuring Machine Programmer Relationship Specialty Start Date End Date Slava Morrison MD PCP - General 09/13/03
[2024-12-14 15:40] LABS: Folic Acid 9.3 ng/mL (2.76->20)
[2024-12-14 20:36] LABS: Iron 95 ug/dL (37-170)
[2024-12-14 20:59] LABS: Percent Iron Saturation 30 % (20-50); Vitamin D 25 Hydroxy 35.1 ng/mL
[2024-12-15 09:08] LABS: FSH 7.4 mIU/mL; LH 10.2 mIU/mL; Progesterone 0.5 ng/mL; Prolactin 6.3 ng/mL
[2024-12-18 14:08] LABS: Testosterone Free 4 pg/mL (0.1-6.4); Testosterone Total 42 ng/dL (2-45)
== END 2024-12-14 13:27 | disposition home or self-care (01) ==
LOC: ANHGOSHLAB 13:27
PROVIDERS: PCP Nurse Practitioner Family; Visit Provider Obstetrics & Gynecology
DX: N92.6 Irregular menstruation, unspecified (principal); F41.8 Other specified anxiety disorders; N92.0 Excessive and frequent menstruation with regular cycle
CPT/HCPCS: 36415; 82306; 82607; 82670; 82728; 82746; 83001; 83002; 83540; 83550; 84144; 84146; 84402; 84403; 84443; 85025

== ENCOUNTER 2024-12-29 12:44 | Outpatient (CLI) | payer MEDICAID, SELFPAY ==
--- NOTE | ~2024-12-29 | US_ITS ---
EXAMINATION: US pelvic complete w TV INDICATION: Amenorrhea. Patient 9 months . Comparison:12/18/2023 TECHNIQUE: Multiple transabdominal and endovaginal sonographic images of the pelvis performed. FINDINGS: The uterus measures 7.8 x 3.6 x 5.1 cm. Endometrium is thickened and heterogeneous. The end ometrial complex measures 16 mm. The right ovary measures 3.4 x 1.4 x 2.5 cm and the left ovary measures 4.4 x 1.4 x 3.3 cm. There ar e small follicles in each ovary. Normal doppler signal in both ovaries. There is no free fluid in the pelvis. There are no abnormal masses seen on either side. IMPRESSION: 1. Thickened heterogeneous endometrium measuring 1.6 cm. Reviewed, dictated and finalized at location A.
== END 2024-12-29 12:45 | disposition home or self-care (01) ==
LOC: MICIMG 12:44
PROVIDERS: PCP Nurse Practitioner Family; Visit Provider Obstetrics & Gynecology
DX: R93.89 Abnormal findings on diagnostic imaging of other specified body structures (principal)
CPT/HCPCS: 76830; 76856